=== PATIENT | female | born 2000 | race Hispanic/Latino ===

== ENCOUNTER 2020-10-15 19:48 | Emergency (ER) | payer OTHER ==
[2020-10-16 14:23] LABS: SARS-CoV-2 PCR by NAA Not Detected (NotDetected)
== END 2020-10-15 21:21 | disposition home or self-care (01) ==
LOC: CSHERS 19:48
DX: J06.9 Acute upper respiratory infection, unspecified (principal); Z20.822 Contact with and (suspected) exposure to COVID-19
CPT/HCPCS: 71045; 87635; U0003; U0005